=== PATIENT | male | born 1945 | race Caucasian/White ===

== ENCOUNTER 2023-06-05 13:33 | Day surgery (SDC) | payer MEDICARE, OTHER ==
[~2023-06-05] VITALS: Ht 172.7 cm; Wt 75.9 kg
[2023-06-05] MEDS ORDERED: TAMSULOSIN HCL0.4 M1 PO (14:06)
[2023-06-05] MEDS ORDERED: ATOR20 (14:07)
[2023-06-05] MEDS ORDERED: ATOR20 PO (14:07)
[2023-06-05] MEDS ORDERED: CARBIDOPA-LEVO1 EA21 PO (14:08)
[2023-06-05] MEDS ORDERED: FINASTERIDE1 MG PO (14:08)
--- NOTE | 2023-06-05 15:22 | NUR ---
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
== END 2023-06-05 15:49 | disposition home or self-care (01) ==
LOC: ORSCSDS 13:33
PROVIDERS: Ophthalmology
PROC: 08DJ3ZZ Extraction of Right Lens, Percutaneous Approach (ICD-10-PCS; principal; 2023-06-05 15:00)
DX: H25.13 Age-related nuclear cataract, bilateral (principal); G20.A1 Parkinson's disease without dyskinesia, without mention of fluctuations; H40.51X4 Glaucoma secondary to other eye disorders, right eye, indeterminate stage; I73.9 Peripheral vascular disease, unspecified; J45.909 Unspecified asthma, uncomplicated; Z79.899 Other long term (current) drug therapy
CPT/HCPCS: J2250; J3010; J3301; J7040; V2632